=== PATIENT | female | born 1950 | race African-American/Black ===

== ENCOUNTER 2018-01-11 21:57 | Emergency (ER) | payer OTHER ==
[2018-01-11 23:08] LABS: #Monocytes 0.3 thou/uL (0.11-0.59); #Neutrophils 4.9 thou/uL (1.40-6.50); %Basophils 0.5 % (0.0-1.0); %Eosinophils 0.3 % (0.0-10.0); %Lymphocytes 16.3 % (21.0-51.0); %Neutrophils 77.8 % (42.0-75.0); Hemoglobin 12.7 g/dL (12.0-16.0); Mean Corpuscular HGB CONC 34.4 g/dL (32.0-36.0); Mean Platelet Volume 8.5 fL (7.4-10.4); Platelet Count 243 thou/uL (130-400); Red Blood Cell (RBC) Count 4.11 mill/uL (4.20-5.40); White Blood Cell (WBC) Count 6.3 thou/uL (4.8-10.8)
[2018-01-11 23:22] LABS: ALT (SGPT) 17 U/L (8-55); AST (SGOT) 19 U/L (5-34); Albumin 4.1 g/dL (3.4-4.8); Alkaline Phosphatase 78 U/L (40-150); Anion Gap 15 mmol/L (10-20); BUN (Urea Nitrogen) 11 mg/dL (9.8-20.1); Bilirubin, Total 0.5 mg/dL (0.2-1.2); Calc. Creatinine Clearance 0 mL/min (70-130); Calcium 9.9 mg/dL (7.8-10.44); Carbon Dioxide 22 mmol/L (23-31); Chloride 105 mmol/L (98-107); Estimated GFR-MDRD 74; Globulin 3.5 g/dL (2.4-3.5); Glucose 118 mg/dL (80-115); Potassium 3.3 mmol/L (3.5-5.1); Protein, Total 7.6 g/dL (6.0-8.3); Sodium 139 mmol/L (136-145)
--- NOTE | 2018-01-11 23:27 | CT ---
HEAD CT NONCONTRAST: Indication: Headache. Intermittent dizziness. FINDINGS: No intracranial hemorrhage, mass effect, or midline shift. There is mild chronic microvascular ischem ic disease. IMPRESSION: No acute intracranial abnormalities are identified. POS: [facility]
[2018-01-11] MEDS ORDERED: Ondansetron HCl/PF 4 MG/2 ML Vial ONE (23:36)
[2018-01-11] MEDS ORDERED: Metoclopramide HCl 10 MG/2 ML VIAL ONE (23:36)
[2018-01-11] MEDS ORDERED: Dexamethasone 10 MG/ML VIAL ONE (23:36)
[2018-01-11] MEDS ORDERED: Fentanyl 100 MCG/2 ML VIAL ONE (23:36)
[2018-01-12] MEDS ORDERED: Meclizine HCl 25 MG TAB ONE (00:24)
[2018-01-12] MEDS ORDERED: Ondansetron ODT 4 MG TAB ONE (03:11)
--- NOTE | 2018-02-07 14:22 | EKG ---
Test Reason : Blood Pressure : / mmHG Vent. Rate : 074 BPM Atrial Rate : 074 BPM P-R Int : 190 ms QRS Dur : 078 ms QT Int : 416 ms P-R-T Axes : 046 -06 048 degrees QTc Int : 461 ms Normal sinus rhythm Normal ECG Confirmed by TODD Garcia, SHAR ([id number]), film or videotape editor RUPERTO ZUÑIGA ([id number]) on 02/07/2018 2:21:28 PM Referred By: TAIWO BROOKS Confirmed By:SHAR BROOKS M.D.
== END 2018-01-12 03:44 | disposition home or self-care (01) ==
LOC: ERS 21:57 → EDBD 21:57 → ERS 01-12 03:44
DX: G43.909 Migraine, unspecified, not intractable, without status migrainosus (principal); I10 Essential (primary) hypertension; Z79.899 Other long term (current) drug therapy; Z79.82 Long term (current) use of aspirin
CPT/HCPCS: 36415; 70450; 80053; 85025; 93005; 96365; 96375; J1100; J2405; J2765; J3010; Q0162

== ENCOUNTER 2019-01-14 12:29 | Outpatient (CLI) | payer MEDICARE | END 2019-01-14 12:30 | disposition home or self-care (01) | LOC: BICMAMMO 12:29 | PROVIDERS: ATTEND Family Medicine | DX: Z12.31 Encounter for screening mammogram for malignant neoplasm of breast (principal); N63.10 Unspecified lump in the right breast, unspecified quadrant | CPT/HCPCS: 77063; 77067 ==

== ENCOUNTER 2020-09-01 07:44 | Outpatient (CLI) | payer MEDICARE ==
--- NOTE | 2020-09-01 08:26 | MMO ---
Bilateral MAMMO Bilat Screen [facility]. CLINICAL HISTORY: Patient is 70 years old and is seen for screening. The patient has no family history of breast cancer. The patient has no personal history of cancer. VIEWS: The views performed were: bilateral craniocaudal with tomosynthesis and bilateral mediolateral oblique with tomosynthesis. FILMS COMPARED: The present examination has been compared to prior imaging studies performed at [facility] on 08/22/2011, 08/27/2012, 09/23/2017 and 01/14/2019. This study has been interpreted with the assistance of computer-aided detection. MAMMOGRAM FINDINGS: There are scattered fibroglandular densities. There are stable benign appearing calcifications seen in both breasts. Nodularity is stable. There are no suspicious masses, suspicious calcifications, or new areas of architectural distortion. IMPRESSION: THERE IS NO MAMMOGRAPHIC EVIDENCE OF MALIGNANCY. A ROUTINE FOLLOW-UP MAMMOGRAM IN 1 YEAR IS RECOMMENDED. THE RESULTS OF THIS EXAM WERE SENT TO THE PATIENT. ACR BI-RADS Category 2 - Benign finding MAMMOGRAPHY NOTE: 1. A negative mammogram report should not delay a biopsy if a dominant of clinically suspicious mass is present. 2. Approximately 10% to 15% of breast cancers are not detected by mammography. 3. Adenosis and dense breasts may obscure an underlying neoplasm. Reported by: MEENU LEOS MD Electonically Signed: [id number]
== END 2020-09-01 07:45 | disposition home or self-care (01) ==
LOC: BICMAMMO 07:44
PROVIDERS: ATTEND Family Medicine
DX: Z12.31 Encounter for screening mammogram for malignant neoplasm of breast (principal)
CPT/HCPCS: 77063; 77067